=== PATIENT | female | born 2000 | race Native Hawaiian/Other Pacific Islander ===

== ENCOUNTER 2018-07-24 18:58 | Emergency (ER) | payer SELFPAY ==
[~2018-07-24] VITALS: Ht 170.2 cm; Wt 92.7 kg
[2018-07-24 19:01] VITALS: BP 118/73
[2018-07-24] MEDS ORDERED: IBUPROFEN 600 MG TABLET PO ONE (20:00)
[2018-07-24] MEDS ORDERED: LIDOCAINE 5% TRANSDERMAL PATCH TD ONE (20:00)
== END 2018-07-24 20:53 | disposition home or self-care (01) ==
LOC: EMS 18:59
DX: S16.1XXA Strain of muscle, fascia and tendon at neck level, initial encounter (principal); S39.012A Strain of muscle, fascia and tendon of lower back, initial encounter; V49.40XA Driver injured in collision with unspecified motor vehicles in traffic accident, initial encounter; Y93.89 Activity, other specified; Y92.89 Other specified places as the place of occurrence of the external cause; Y99.8 Other external cause status